=== PATIENT | male | born 1950 | race Caucasian/White ===

== ENCOUNTER → 2016-11-29 | Day surgery (SDC) | payer MEDICARE ==
[2016-11-29] VITALS (11 sets, daily range): BP systolic 139–158; BP diastolic 62–76; PULSE 8–100; RESP 11–18; O2SAT 94–100
[~2016-11-29] VITALS: Ht 177.8 cm; Wt 81.8 kg
[~2016-11-29] MED LIST: 0.9% Sodium Chloride 100 ML ONE; ASCO500C6 PO; Atropine 0.4 mg/mL Inj IVPUSH PRN; Bupivacaine Liposome 1.3% 20 mL Inj INFILTRATE ONE; Bupivacaine Liposome 1.3% 20 mL Inj NERVEBLOCK PRN; Bupivacaine-MPF 0.25%/EPI 30 mL Inj INJ ONE; CHOL5000 PO; CeFAZolin Inj 2 GM in IV Premix 1 EACH IV ONE; DULO20CA PO; Dexamethasone 4 mg/mL Inj IVPUSH PRN; EPHEDrine Sulfate 50 mg/mL Inj IVPUSH PRN; GLIM4TAB2 PO; Gentamicin 40 mg/mL 2 mL Inj IRRIGATION ONE; Glycopyrrolate 0.2 MG/ML 1mL Inj ONE; HYG25 PO; IRBE75TA31 PO; Labetalol 5 mg/mL 4 mL Inj IV PRN; Lactated Ringer's 1,000 ML IV ONE; Lactated Ringer's 1,000 ML IV SCH; Lactated Ringer's 500 ML IV PRN; METF1000 PO; MetoCLOpramide 5 mg/mL 2 mL Inj IVPUSH PRN; Neostigmine 1 mg/mL 10 mL Inj ONE; Ondansetron 2 mg/mL 2 mL Inj IVPUSH ONE; Ondansetron 2 mg/mL 2 mL Inj IVPUSH PRN; PIOG30TA26 PO; Phenylephrine 10,000 mCg/mL Inj IVPUSH PRN; Propofol 10,000 mCg/mL 20 mL Inj ONE; QUET25TA73 PO; ROSU40TA PO; Rocuronium 10 mg/mL 5 mL Inj ONE; TRAM50TA2 PO; Tranexamic Acid 100 mg/mL 10 mL Inj IV PRN; Tranexamic Acid 100 mg/mL 10 mL Inj ONE; VIT1TABL83 PO; Vancomycin Inj 1,250 MG in 0.9% Sodium Chloride 250 ML IV ONE; fentaNYL-PF 50 mCg/mL 2 mL Inj ONE; hydrALAZINE 20 mg/mL Inj IVPUSH PRN; oxyCODONE-Acetamin 5-325 mg Tablet PO ONE
--- NOTE | 2016-11-29 08:49 | PCM.HPANE ---
Patient Data Date of Service: Nov 29, 2016 Surgeon Admitting Provider: Attending Provider:Jassi Sams MD Primary Care Physician:Jorge Broderick MD Other Provider:Karin Gonzalez Anesthesia Reason for Visit Right Knee Arthritis Ht/WT & BMI Height (Feet): 5 Height (Inches): 10 Weight (Kilograms): 81.8 Body Mass Index 25.00 Allergies Coded Allergies: Penicillins (Verified Allergy, Unknown, rash, 11/18/16) Uncoded Allergies: PNEUMOCOCCAL VACCINES (Allergy, Unknown, severe arm pain, 11/18/16) Past Anesthesia History Anesthesia History: Denies:: Abnormal Airway, Anesthesia Reactions, Difficult Intubation, Fam Anesthesia Reaction Diabetes History Hx Diabetes?: Yes Type of Diabetes: Type II Glycemic Control: Oral Medication Current Bedside Blood Glucose: 151 MRSA MRSA: No Medications Hypertension Medication: Yes Home Meds Incl Beta Ambrosio: No Reported Medications Cholecalciferol (Vitamin D3) (Vitamin D3)5,000 Unit Capsule5,000 Unit PO DAILY 11/18/16 Pioglitazone 30 Mg Gynobc87 Mg PO DAILY Ref 0 11/18/16 Chlorthalidone 25 Mg Wivzwo87 Mg PO DAILY #30 TABLET 11/18/16 Irbesartan (Avapro)75 Mg Qsuhxh58 Mg PO DAILY 11/18/16 Tramadol 50 Mg Wtlnrj53 Mg PO Q4H PRN For Pain Ref 0 11/18/16 Quetiapine Fumarate 25 Mg Fncfvx25 Mg PO DAILY Ref 0 11/18/16 Metformin (Glucophage)1,000 Mg Tablet1,000 Mg PO BID Ref 0 11/18/16 Glimepiride 4 Mg Tablet4 Mg PO HS #30 TABLET Ref 0 11/18/16 Duloxetine (Cymbalta)20 Mg Ycntqub94 Mg PO BID Ref 0 11/18/16 Rosuvastatin Calcium (Crestor)40 Mg Zvbenl75 Mg PO DAILY 30 Days Ref 0 11/18/16 Discontinued Reported Medications Vit B Comp/C/FA/Iron/Vit E (Vitamin B Complex Tablet)1 Each Tablet1 Each PO DAILY 11/18/16 Ascorbic Acid (Vitamin C)500 Mg Capsule.er500 Mg PO DAILY 11/18/16 History History of ENT Problems?: No HEENT History: Denies:: Abnormal Airway Cataracts Difficult Intubation Dysphagia Glaucoma Hearing Problem Sinus Problem TMJ Denture Type: None Teeth Condition: Within Normal Limits Hx of Heart Problems?: Yes Cardiovascular History: Positive for:: Heart Murmur (since jr high - low grade heart murmur) Hypertension Denies:: AICD Abdominal Aortic Aneurism Atrial Fibrillation Chest Pain Coronary Artery Disease Irregular Heartbeat Pacemaker Peripheral Vascular Rheumatic Fever Thrombophlebitis Hx of Respiratory Problem?: Yes Respiratory History: Positive for:: Chest Surgery (rt thoracotomy/ decortication (post empyema) hx) Denies:: COPD Emphysema Oxygen Administration Pneumonia Tuberculosis Use of C-PAP Machine Use of Inhalers / NEBS Hx Neurologic Problems?: No Neurological History: Denies:: CVA Headaches Multiple Sclerosis Parkinson's Disease Seizures Hx of GI Problems?: No Hx of Problems?: Yes Genitourinary History: Denies:: Kidney Stones Urinary Tract Infection Other Pertinent History: hx of penile implant Male Hx: Denies:: Prostate Problems Skin History: Denies:: History Skin Disorders? Pressure Ulcers Hx Musculoskeletal Problems?: Yes Musculoskeletal History: Positive for:: Degenerative Joint Osteoarthritis Denies:: Fibromyalgia Joint Replacement Myasthenia Gravis Hx of Psycho/Social Problems?: No Psycho Social History: Denies:: Anxiety Hx Depression Hx Surgeries?: Yes (rt thoracotomy, knee scope, penile implant) Hx Any Other Health Problems?: Yes Other History: Positive for:: Cancer (BCC back) Denies:: Thyroid Disease History Blood Transfusions: Positive for:: Accept Blood Products? Denies:: Blood Transfusions Hx Diabetes: Yes Hx Alcohol Use: NoHx Substance Use: Yes (edible marijuana 2-3 x weekly)Have You Smoked inLast 12 mo: No Stop/Bang Treated for Sleep Apnea?: No Do You Have a CPAP Machine?: No S-Snoring: Do You Snore Loudly: No T-Tired: feel tired, fatigued: No O-Obsered: Observed not breath: No P-Blood Pressure: treated: Yes B- Body Mass Index > 35 kg/m2: No A- Age over 50: Yes N- Neck Large Circumference: No G- Gender Male: Yes ISIDORO Total Score: 3 ISIDORO Risk Assessment: High Risk, =/>3 Yes ISIDORO Category 4 OutPt Procedure: Yes Risk Assessment Category Category 1A: Patient has history of documented sleep apnea, and HAS NOT received any narcotic, sedative or anesthesia administration during this stay. Category 1B: Patient has history of documented sleep apnea, and HAS received any narcotic , sedative or anesthesia administration during this stay Category 2: Patient has SUSPECTED Obstructive Sleep Apnea, and HAS received any narcotic , sedative or anesthesia administration during this stay. Category 3: Patient has SUSPECTED Obstructive Sleep Apnea and HAS NOT received narcotic, sedative or anesthesia administration during this stay. Category 4: Outpatient in Procedural Areas with known sleep apnea or who screen positive for High Risk via the STOP/BANG questionnaire. Exam Exam Vital Signs Vital Signs Date Time Temp Pulse Resp B/P Pulse Ox O2 Delivery O2 Flow Rate FiO2 11/29/16 07:52 36.2 67 14 139/75 99 Room Air General Appearance: Alert, Oriented X3, Cooperative HEENT/AIRWAY: MP 2, Neck Movement (Full), Mouth Opening (Wide) Lungs: Clear to Auscultation, Normal Air Movement Heart: Regular Rate/Rhythm, Normal S1, Normal S2, Murmur (mild 2/6 since childhood) Meds/Labs/Diagnostics Admission Meds Current Medications Lactated Ringer's (Lr) 1,000 ml @ 120 mls/hr Q8H20M ONCE IV Last administered on 11/29/16t 07:40; Start 11/29/16 at 05:00; Stop 11/29/16 at 13:19 Bedside Blood Glucose: 151 Plan Impression Patient chart reviewed, patient interviewed and anesthestic plan with risks, benefits, and alternatives discussed, and informed consent obtained. ASA Physical Status: ASA2 Mod Systemic Disease Anesthetic Plan: GA Bene/Risks/Altern/Consents: Yes HP Complete Prior to Induction: Yes Nagi Clemente MD Nov 29, 2016 08:14
[2016-11-29] MEDS: fentaNYL-PF 50 mCg/mL 2 mL Inj IVPUSH PRN ×2 (10:45→10:52)
[2016-11-29] MEDS: HYDROmorphone 1 mg/mL Inj IVPUSH PRN ×2 (11:06→11:17)
--- NOTE | 2016-11-29 11:28 | PCM.ANEP1 ---
Post Anesthesia PACU Phase 1 Assessment Date of Service: Nov 29, 2016 Vital Signs Vital Signs Date Time Temp Pulse Resp B/P Pulse Ox O2 Delivery O2 Flow Rate FiO2 11/29/16 11:15 74 14 158/71 95 Room Air 11/29/16 11:00 37.0 76 11 157/72 95 Room Air 11/29/16 10:50 77 11 156/75 97 Room Air 11/29/16 10:45 16 156/74 96 Room Air 11/29/16 10:40 79 14 156/76 100 Simple Mask 11/29/16 10:35 36.8 82 14 150/74 100 Simple Mask 11/29/16 07:52 36.2 67 14 139/75 99 Room Air Anesthetic Administered: GA Level of Alertness: Awake, talking CARTER's with Equal Strength: Yes Pain: Yes Pain Scale Score: 4 Nausea or Vomiting: No CV Function & Hydration Stable: Yes Airway Device: Oxygen Delivery: Simple Mask Lungs: Clear to Auscultation, Normal Air Movement PACU Phase 2 Assessment Complications: No Follow up Care: N/A Patient Instructions Provided: N/A Nagi Clemente MD Nov 29, 2016 11:28
--- NOTE | 2016-11-29 11:50 | DRSVH ---
PROCEDURE: X-RAY RIGHT KNEE, ONE OR TWO VIEWS ([id number]) INDICATIONS: post unin knee TECHNIQUE: 3 view(s) of the knee acquired. COMPARISON: [facility], CR, XR KNEE ARTHRITIC SERIES BI, 10/05/2016, 12:56. [facility], MR, LOW.EXTREM NO JOINT WO CONTRAS, 03/10/2016, 9:36. [facility], MR, KNEE WITHOUT CONTRA ST, 03/10/2016, 9:11. [facility], , KNEE SERIES LT, 03/02/2016, 10:11. FINDINGS: Bones: Patient is status post knee joint arthroplasty. Hardware components are in expected position s. Visualized bony structures are intact. Soft tissues: Overlying postoperative changes are noted. IMPRESSION: Expected postsurgical appearance after right medial compartment unicompartmental hemiarth roplasty with a surgical drain overlying the operative bed. Dictated by: Seferino Llanes M.D. on 11/29/2016 at 11:48 Approved by: Seferino Llanes M.D. on 11/29/2016 at 11:49
--- NOTE | 2016-11-29 21:56 | OP ---
[address] [address] OPERATIVE REPORT PATIENT: DAVID ALARCON I : 1950 MR#: [id number] ADMIT: 11/29/2016 JOB ID: [id number] DATE OF SURGERY: 11/29/2016 PREOPERATIVE DIAGNOSIS(ES): Advanced medial compartment osteoarthritis, right knee. POSTOPERATIVE DIAGNOSIS(ES): Advanced medial compartment osteoarthritis, right knee. PROCEDURE: Unicompartmental knee arthroplasty. SURGEON: Jassi Howell MD. NEONATAL NURSE PRACTITIONER: Tigist Zendejas PA-C. Required due to the complexity of the operation. COMPLICATIONS: None. INDICATIONS: This gentleman has had severe progressive medial compartment osteoarthritis with symptoms uncontrolled by conservative treatment options. He elects for a unicompartmental knee arthroplasty. He understands and accepts the potential for risks and complications, which includes but is not limited to infection, thromboembolic, neurovascular events, as well as potential for progressive arthritis and unresurfaced compartments and implant failure. Understanding this, he wishes to proceed. FINDINGS: Revealed an intact ACL, normal lateral compartment as visualized, and large effusion. PROCEDURE: The patient was prepped and draped in the usual sterile fashion. An anteromedial approach was made. Patellar osteophyte was removed. Alignment apparatus was assembled and the proximal tibial cut was made. Cut was completed with a sagittal saw and the bone fragment was removed, a 9 spacer block utilized. produced excellent alignment, soft tissue tension. It was pinned in place and the distal femoral cut was made. Femur was sized to a 5 chamfer cutting block, fixed in appropriate position and rotation, and drill holes and chamfer cuts were made. The tibia was subsequently sized to an F component, fixed in appropriate position and rotation, and drill stabilization holes were made. Trial reduction was performed and a 9 mm polyethylene was chosen which produced excellent alignment, soft tissue tension and tracking. Wounds were irrigated with sterile irrigant. Pressurized lavage was followed by pressurized cementation. Excess cement removed during the curing process. Final construct was assembled. All meniscal tissue and osteophytes were removed and cut margins were injected with Marcaine with epi. Tourniquet was let down. A deep Hemovac drain was left. The knee was closed with number #2 Quill deep followed by a 2-0 Vicryl, 3-0, and a 4-0 intracuticular stitch. Patient tolerated the procedure well. There were no complications.
== END | disposition home or self-care (01) ==
LOC: SAS 07:31
PROVIDERS: ATTEND Orthopaedic Surgery
DX: M17.11 Unilateral primary osteoarthritis, right knee (principal); I10 Essential (primary) hypertension; E78.5 Hyperlipidemia, unspecified; E11.9 Type 2 diabetes mellitus without complications; E78.00 Pure hypercholesterolemia, unspecified; F90.9 Attention-deficit hyperactivity disorder, unspecified type; G60.9 Hereditary and idiopathic neuropathy, unspecified; F41.9 Anxiety disorder, unspecified; Z79.84 Long term (current) use of oral hypoglycemic drugs; Z86.010 Personal history of colon polyps; Z85.828 Personal history of other malignant neoplasm of skin
CPT/HCPCS: 27446; 73560; 87070; 87075; 87205; C1713; C1776; J0690; J1170; J1200; J1580; J1885; J2250; J2405; J2710; J3010; J3370; J7050; J7120